=== PATIENT | female | born 1980 | race American Indian/Alaskan Native ===

== ENCOUNTER 2022-01-08 07:59 | Day surgery (SDC) | payer BC ==
[2022-01-08] MEDS ORDERED: LACTATED RINGERS 1,000 ML IV SCH (09:00)
--- NOTE | 2022-01-08 09:02 | Anesthesia Consultation ---
Anesthesia Consult and Med Hx Date of service: 01/08/22 - Airway Anesthetic Teeth Evaluation: Good ROM Head & Neck: Adequate Mental/Hyoid Distance: Adequate Mallampati Class: Class III Intubation Access Assessment: Possibly Difficult - Pre-Operative Health Status ASA Pre-Surgery Classification: ASA3 Proposed Anesthetic Plan: General - Central Nervous System Hx Psychiatric Problems: No - Other Systems Hx Alcohol Use: Yes (Occas) Hx Substance Use: Yes (Marijuana occas) Hx Cancer: No Hx Obesity: Yes (Morbid obesity BMI 42.5)
--- NOTE | 2022-01-08 09:02 | Anesthesia Day of Surgery ---
Anesthesia Day of Surgery - Day of Surgery Patient Examined: Yes Patient H&P Reviewed: Yes Patient is NPO: Yes
[2022-01-08] MEDS ORDERED: ROCURONIUM 50 MG/5 ML INJ IV ONE (09:46)
[2022-01-08] MEDS ORDERED: ONDANSETRON 4 MG/2 ML INJ ONE (09:46)
[2022-01-08] MEDS ORDERED: propofoL 200 MG/20 ML VIAL IV ONE (09:47)
[2022-01-08] MEDS ORDERED: HYDROmorphone 1 MG/1 ML INJ ONE (09:47)
[2022-01-08] MEDS ORDERED: fentaNYL 100 MCG/2 ML INJ ONE (09:48)
[2022-01-08] MEDS ORDERED: LIDOCAINE MPF (2%) 20 MG/1 ML VIAL 5 ML ONE (09:53)
[2022-01-08] MEDS ORDERED: CELECOXIB 200 MG CAP PO NR (10:00)
[2022-01-08] MEDS ORDERED: GABAPENTIN 300 MG CAP PO NR (10:00)
[2022-01-08] MEDS ORDERED: SCOPOLAMINE TRANSDERMAL PATCH 72 HR TD NR (10:00)
[2022-01-08] MEDS ORDERED: FAMOTIDINE 20 MG/2 ML INJ IV NR (10:00)
[2022-01-08] MEDS ORDERED: MIDAZOLAM 2 MG/2 ML INJ IV NR (10:00)
--- NOTE | 2022-01-08 10:00 | Short Stay Summary ---
Short Stay Documentation Date of service: 01/08/22 Narrative H&P: 41-year-old -0-1-1 with undesired fertility. The patient was given other contraceptive options and elected to undergo permanent sterilization - History Principal diagnosis: Unwanted fertility Past Medical History: No medical history Past Surgical History: Social history: single, smoking - Allergies and Medications Current Medications: Allergies sulfamethoxazole [From Bactrim] Allergy (Verified 01/06/22 17:16) Anaphylaxis trimethoprim [From Bactrim] Allergy (Verified 01/06/22 17:16) Anaphylaxis Home Medications Medication Instructions Recorded Confirmed Last Taken Type Phentermine HCl 30 mg PO QDAY 01/08/22 01/08/22 01/02/22 History Topiramate [Topamax] 25 mg PO QDAY 01/08/22 01/08/22 01/02/22 History Active Medications Famotidine (Famotidine 20 Mg/2 Ml Inj) 20 mg IV PREOP NR Stop: 01/08/22 20:00 Gabapentin (Gabapentin 300 Mg Cap) 300 mg PO PREOP NR Stop: 01/08/22 20:00 Lactated Ringer's (Lactated Ringers) 1,000 mls @ 100 mls/hr IV DIRECT REBECA Last Admin: 01/08/22 09:40 Dose: 100 mls/hr Midazolam HCl (Midazolam 2 Mg/2 Ml Inj) 2 mg IV PREOP NR Stop: 01/08/22 23:59 Scopolamine (Scopolamine Transdermal Patch 72 Hr) 1 each TD PREOP NR Stop: 01/08/22 20:00 - Physical exam General appearance: no acute distress Integumentary: no rash HEENT: Atraumatic Lungs: Clear to auscultation Breasts: deferred Heart: Regular rate Gastrointestinal: normal Female Genitourinary: deferred Extremities: no ischemia - Brief post op/procedure progress note Date of procedure: 01/08/22 Pre-op diagnosis: Unwanted fertility Post-op diagnosis: same Procedure: Laparoscopic bilateral tubal ligation with bilateral salpingectomy Anesthesia: JONATHAN Surgeon: CARISA ARCEO Estimated blood loss: minimal Pathology: list (Bilateral fallopian tubes) Specimen disposition: to lab Condition: stable - Hospital course Hospital course: The patient was admitted the day of surgery and underwent a bilateral salpingectomy. Please see operative note for details of surgery. Her postoperative course was uneventful. - Disposition Condition at discharge: Good Disposition: 01 HOME / SELF CARE / HOMELESS Short Stay Discharge Plan Activity: no restrictions Diet: regular Additional Instructions: Follow-up is not required Follow-up as needed Prescriptions: Ibuprofen [Motrin] 800 mg PO Q8HR PRN #30 tablet PRN Reason: Pain , Severe (7-10) HYDROcodone/APAP 5-325 [[place] 5/325] 1 each PO Q6HR PRN #15 tablet PRN Reason: Pain
[2022-01-08] MEDS ORDERED: BUPIVACAINE/PF (0.5%) 5 MG/1 ML 10 ML VIAL INFILTRATI ONE ×2 (10:23→11:14)
[2022-01-08] MEDS ORDERED: SODIUM CHLORIDE 0.9% IRR 1,500 ML BOTTLE IR ONE (11:14)
[2022-01-08] MEDS ORDERED: SUGAMMADEX SODIUM 200 MG/2 ML VIAL IV ONE (11:16)
--- NOTE | 2022-01-08 11:35 | Operative Report ---
Operative Report Operative Report: Date of surgery: January 08, 2022 Preoperative diagnosis: Unwanted fertility Postoperative diagnosis: Same as above Procedure: Laparoscopy; Bilateral salpingectomy Surgeon: Shana Juarez M.D. Anesthesia: General endotracheal anesthesia Estimated blood loss: Minimal Pathology: Bilateral fallopian tubes Findings: Normal uterus tubes and ovaries Indication: 41-year-old -0-1-1 with undesired fertility Procedure: The patient was taken to the operating room and given general endotracheal anesthesia without complication. The patient is prepped and draped in a normal sterile fashion. A bivalve speculum was placed in the patient's vagina and a single-tooth tenaculum was placed on the anterior lip of the cervix .A uterine acorn manipulator was placed, and the bivalve speculum was then removed. Attention was then turned to the patient's abdomen where a 5 mm infraumbilical skin incision was then made. A Veress needle was placed and peritoneal entry was verified water-filled syringe. Insufflation of the peritoneal cavity was performed with CO2 gas. A 5 mm trocar was placed and the laparoscope was then inserted. The patient was then placed in Trendelenburg. A 7 mm suprapubic skin incision was then made. Under direct visualization a 7 mm trocar was then placed. An additional 5 mm left lateral trocar was also placed. General survey of the patient's abdomen revealed normal uterus tubes and ovaries. The left fallopian tube had an isthmic portion that was adherent to the left ovary. The ampullary portion and fimbriated end of the tube were excised. The fallopian tube was then followed out to the fimbriated end. The LigaSure device was used in order to coagulate and transect the mesosalpinx. The fallopian tube was excised from the adnexa. The fallopian tube was removed through the 7 mm trocar. The entire right fallopian tube was able to be excised. The trocars were then removed. The pneumoperitoneum was then released. The 5 mm trocar laparoscope was then removed. The skin incisions were then closed with 4-0 Monocryl. The incisions were injected with quarter percent Marcaine. Dressings were applied to the incision. The vaginal instruments were then removed atraumatically. Then successfully extubated and taken to the recovery room. All sponge laps and needle counts were correct x2.
[2022-01-08 13:03] VITALS: BP 142/90
--- NOTE | 2022-01-08 13:09 | Post Anesthesia Evaluation ---
- Post Anesthesia Evaluation Patient Participated: Yes Airway Patent: Yes Stable Respiratory Function: Yes Nausea/Vomiting: No Temp > 96.8F: Yes Pain Manageable: Yes Adequeate Hydration: Yes Anesthesia Complications: No
== END 2022-01-08 14:15 | disposition home or self-care (01) ==
LOC: OR 07:59
PROVIDERS: ATTEND Obstetrics & Gynecology
DX: Z30.2 Encounter for sterilization (principal); G43.909 Migraine, unspecified, not intractable, without status migrainosus; E66.9 Obesity, unspecified; Z98.891 History of uterine scar from previous surgery; Z79.899 Other long term (current) drug therapy; Z88.8 Allergy status to other drugs, medicaments and biological substances; Z68.41 Body mass index [BMI] 40.0-44.9, adult; Z72.89 Other problems related to lifestyle; Z98.890 Other specified postprocedural states
CPT/HCPCS: 58670; 81025; 88302; J1170; J2250; J2405; J2704; J3010; J3490; J7120

== ENCOUNTER 2022-01-27 09:54 | Emergency (ER) | payer BC ==
--- NOTE | 2022-01-27 10:07 | Emergency Department Report ---
Blank Doc - Documentation Documentation: 41-year-old female that presents with lower abdominal pain. 1- This is a initial triage assessment/medical screening only. Full assessment and work-up will be completed once the patient is in proper hospital gown, ED bed and in a private room setting. This initial assessment/diagnostic orders/clinical plan/ treatment(s) is/are subject to change based on pt's health status, clinical progression and re-assessment by fellow clinical providers in the ED. Further treatment and workup at subsequent clinical providers discretion. Patient/guardians urged not to elope from ED as their condition may be serious if not clinically assessed and managed. 2-labs 3-UA The patient was evaluated in the emergency department for symptoms described in the history of present illness. He/she was evaluated in the context of the global COVID-19 pandemic, which necessitated consideration that the patient might be at risk for infection with the virus that causes COVID-19. Institutional protocols and algorithms that pertain to the evaluation of patients at risk for COVID-19 are in a state of rapid change based on information released by regulatory bodies including the CDC and federal and state organizations. These policies and algorithms were followed during the patient's care in the emergency department. Please note that these policies, procedures and recommendations changed on a rapid basis.
--- NOTE | 2022-01-27 11:04 | Emergency Department Report ---
ED Abdominal Pain HPI - General Chief Complaint: Abdominal Pain Stated Complaint: ABD PAIN Time Seen by Provider: 01/27/22 10:06 Source: patient Mode of arrival: Ambulatory Limitations: No Limitations - History of Present Illness Initial Comments: 41-year-old black female with no past medical history presents to the emergency department for evaluation of right lower quadrant pain. She states that she developed pain yesterday morning and has been getting progressively worse since then. She states that pain is worse with movement. She denies fever, nausea, vomiting, diarrhea, dysuria, and vaginal discharge. She states that she is status post salpingectomy bilaterally on January 08. Complaint: abdominal pain -: Sudden, days(s) (1) Location: RLQ Radiation: none Migration to: no migration Severity scale (0 -10): 7 Quality: aching Consistency: constant Worsens With: movement Associated Symptoms: denies: nausea, vomiting, diarrhea, fever, chills, dysuria, hematemesis, hematochezia, melena, hematuria, anorexia, syncope - Related Data LMP Date: 01/14/22 Home Medications Medication Instructions Recorded Confirmed Last Taken Phentermine HCl 30 mg PO QDAY 01/08/22 01/08/22 01/02/22 Topiramate [Topamax] 25 mg PO QDAY 01/08/22 01/08/22 01/02/22 Previous Rx's Medication Instructions Recorded Last Taken Type HYDROcodone/APAP 5-325 [[place] 1 each PO Q6HR PRN #15 tablet 01/08/22 Unknown Rx 5/325] Ibuprofen [Motrin] 800 mg PO Q8HR PRN #30 tablet 01/08/22 Unknown Rx Allergies Allergy/AdvReac Type Severity Reaction Status Date / Time sulfamethoxazole Allergy Anaphylaxis Verified 01/06/22 17:16 [From Bactrim] trimethoprim [From Bactrim] Allergy Anaphylaxis Verified 01/06/22 17:16 ED Review of Systems ROS: Stated complaint: ABD PAIN Other details as noted in HPI Comment: All other systems reviewed and negative Constitutional: denies: chills, fever Respiratory: denies: shortness of breath Cardiovascular: denies: chest pain, palpitations Gastrointestinal: abdominal pain. denies: nausea, vomiting, diarrhea, hematemesis, melena, hematochezia Genitourinary: denies: urgency, dysuria Musculoskeletal: denies: back pain Skin: denies: rash, lesions Neurological: denies: headache, weakness ED Past Medical Hx - Past Medical History Hx Headaches / Migraines: Yes (Migraines) - Surgical History Additional Surgical History: fallopian tubes removed. - Social History Smoking Status: Never Smoker - Medications Home Medications: Home Medications Medication Instructions Recorded Confirmed Last Taken Type HYDROcodone/APAP 5-325 [[place] 1 each PO Q6HR PRN #15 tablet 01/08/22 Unknown Rx 5/325] Ibuprofen [Motrin] 800 mg PO Q8HR PRN #30 tablet 01/08/22 Unknown Rx Phentermine HCl 30 mg PO QDAY 01/08/22 01/08/22 01/02/22 History Topiramate [Topamax] 25 mg PO QDAY 01/08/22 01/08/22 01/02/22 History ED Physical Exam - General Limitations: No Limitations General appearance: alert, in no apparent distress - Head Head exam: Present: atraumatic, normocephalic - Eye Eye exam: Present: normal appearance. Absent: conjunctival injection - Neck Neck exam: Present: normal inspection, full ROM. Absent: tenderness, lymphadenopathy - Respiratory Respiratory exam: Present: normal lung sounds bilaterally. Absent: respiratory distress, wheezes, rales, rhonchi, stridor, chest wall tenderness - Cardiovascular Cardiovascular Exam: Present: regular rate, normal heart sounds - GI/Abdominal GI/Abdominal exam: Present: soft, tenderness (RLQ), normal bowel sounds. Absent: distended, guarding, rebound, rigid - Extremities Exam Extremities exam: Present: normal inspection, full ROM, normal capillary refill. Absent: pedal edema, joint swelling, calf tenderness - Back Exam Back exam: Present: normal inspection. Absent: CVA tenderness (R), CVA tenderness (L) - Neurological Exam Neurological exam: Present: alert, oriented X3, normal gait - Psychiatric Psychiatric exam: Present: normal affect, normal mood - Skin Skin exam: Present: warm, dry, intact, normal color ED Course Vital Signs 01/27/22 01/27/22 10:08 13:48 Temperature 98.9 F 98.6 F Pulse Rate 72 72 Respiratory 14 16 Rate Blood Pressure 121/93 Blood Pressure 136/90 [Right] O2 Sat by Pulse 100 100 Oximetry ED Medical Decision Making - Lab Data Result diagrams: 01/27/22 10:53 01/27/22 10:53 - Radiology Data Radiology results: report reviewed, image reviewed CT abdomen and pelvis without contrast: FINDINGS: CT ABDOMEN: Lung Bases: Clear. Liver: No significant abnormality. Biliary: No significant abnormality. Spleen: No significant abnormality. Unenlarged. Pancreas: No significant abnormality. Adrenals: No significant abnormality. Kidneys: No significant abnormality. Lymphatics: No lymphadenopathy. Vasculature: No significant abnormality. Bowel/Peritoneum: No significant abnormality. No free air. No free fluid. Normal appendix. CT PELVIS: : No significant abnormality. Osseous Structures: No significant abnormality. Mild degenerative disc disease at L5-S1. Additional Findings: None IMPRESSION: No significant abnormality. No clear explanation for right lower quadrant abdominal pain. - Medical Decision Making 41-year-old black female with no past medical history presents to the emergency department for evaluation of right lower quadrant pain. She states that she developed pain yesterday morning and has been getting progressively worse since then. She states that pain is worse with movement. She denies fever, nausea, vomiting, diarrhea, dysuria, and vaginal discharge. She states that she is status post salpingectomy bilaterally on January 08. Work-up unremarkable including CT scan with no acute abnormalities noted. Patient be discharged home to follow-up with her primary care provider or [facility] for further evaluation and management. She is advised to return to the emerg ency department as needed. She verbalizes understanding of and agreement with plan of care. Laboratory Results - last 24 hr 01/27/22 01/27/22 01/27/22 10:35 10:53 10:53 WBC 4.4 L RBC 4.80 Hgb 12.6 Hct 39.6 MCV 83 MCH 26 L MCHC 32 RDW 14.4 Plt Count 282 Lymph % (Auto) 40.6 H [place] % (Auto) 6.4 Eos % (Auto) 2.0 Baso % (Auto) 1.0 Lymph # (Auto) 1.8 [place] # (Auto) 0.3 Eos # (Auto) 0.1 Baso # (Auto) 0.0 Seg Neutrophils % 50.0 Seg Neutrophils # 2.2 Sodium 136 L Potassium 4.0 Chloride 100.1 Carbon Dioxide 26 Anion Gap 14 BUN 10 Creatinine 0.9 Estimated GFR > 60 BUN/Creatinine Ratio 11 Glucose 102 H Calcium 9.3 Total Bilirubin 0.30 AST 16 ALT 14 Alkaline Phosphatase 60 Total Protein 7.0 Albumin 4.1 Albumin/Globulin Ratio 1.4 Lipase 15 HCG, Qual Urine Color Straw Urine Turbidity Clear Specific [place] (Man) 1.020 Ur Protein (Man) <30 mg dl Ur Ketones (Man) Negative Urine Bilirubin (Man) Negative Urine WBC (Auto) 3.0 Urine RBC (Auto) 1.0 U Epithel Cells (Auto) 9.0 Urine RBC (Manual) Negative Urine Mucus Few 01/27/22 10:53 WBC RBC Hgb Hct MCV MCH MCHC RDW Plt Count Lymph % (Auto) [place] % (Auto) Eos % (Auto) Baso % (Auto) Lymph # (Auto) [place] # (Auto) Eos # (Auto) Baso # (Auto) Seg Neutrophils % Seg Neutrophils # Sodium Potassium Chloride Carbon Dioxide Anion Gap BUN Creatinine Estimated GFR BUN/Creatinine Ratio Glucose Calcium Total Bilirubin AST ALT Alkaline Phosphatase Total Protein Albumin Albumin/Globulin Ratio Lipase HCG, Qual Negative Urine Color Urine Turbidity Specific [place] (Man) Ur Protein (Man) Ur Ketones (Man) Urine Bilirubin (Man) Urine WBC (Auto) Urine RBC (Auto) U Epithel Cells (Auto) Urine RBC (Manual) Urine Mucus Critical care attestation.: If time is entered above; I have spent that time in minutes in the direct care of this critically ill patient, excluding procedure time. ED Disposition Clinical Impression: Abdominal pain Qualifiers: Abdominal location: right lower quadrant Qualified Code(s): R10.31 - Right lower quadrant pain Disposition: 01 HOME / SELF CARE / HOMELESS Is pt being admited?: No Does the pt Need Aspirin: No Condition: Stable Instructions: Abdominal Pain, Adult, [id number], Abdominal Pain (ED) Additional Instructions: Use Tylenol and ibuprofen as needed for pain. Follow-up with your primary care provider or [facility] for further evaluation and management. Return to the emergency department as needed. Referrals: MARYSOL BANSAL MD [Staff Physician] - 3-5 Days Forms: Work/School Release Form(ED) Time of Disposition: 13:01
[2022-01-27 11:09] LABS: Eosinophils # (Auto) 0.1 K/mm3 (0.0-0.4); Hematocrit 39.6 % (30.3-42.9); Hemoglobin 12.6 gm/dl (10.1-14.3); Lymphocytes # (Auto) 1.8 K/mm3 (1.2-5.4); Lymphocytes % (Auto) 40.6 % (13.4-35.0); Mean Corpuscular HGB Conc 32 % (30-34); Mean Corpuscular Volume 83 fl (79-97); Monocytes # (Auto) 0.3 K/mm3 (0.0-0.8); Monocytes % (Auto) 6.4 % (0.0-7.3); Platelet Count 282 K/mm3 (140-440); Red Cell Distribution Width 14.4 % (13.2-15.2)
[2022-01-27 11:14] LABS: Mucus,Urine FEW /HPF
[2022-01-27 11:21] LABS: Color,Urine Straw (Yellow)
[2022-01-27 11:32] LABS: Alanine Aminotransferase 14 units/L (7-56); Albumin 4.1 g/dL (3.9-5); BUN/Creatinine Ratio 11; Blood Urea Nitrogen 10 mg/dL (7-17); Calcium 9.3 mg/dL (8.4-10.2); Hemolysis Index 3
--- NOTE | 2022-01-27 12:50 | Cat Scan Report ---
CT ABDOMEN AND PELVIS WITHOUT CONTRAST HISTORY: rlq pain COMPARISON: None. TECHNIQUE: Axial CT images were obtained through the abdomen and pelvis without IV contrast. Sagittal and coronal reformatted images. All CT scans at this location are performed using CT dose reduction for ALARA by means of automated exposure control. FINDINGS: CT ABDOMEN: Lung Bases: Clear. Liver: No significant abnormality. Biliary: No significant abnormality. Spleen: No significant abnormality. Unenlarged. Pancreas: No significant abnormality. Adrenals: No significant abnormality. Kidneys: No significant abnormality. Lymphatics: No lymphadenopathy. Vasculature: No significant abnormality. Bowel/Peritoneum: No significant abnormality. No free air. No free fluid. Normal appendix. CT PELVIS: : No significant abnormality. Osseous Structures: No significant abnormality. Mild degenerative disc disease at L5-S1. Additional Findings: None IMPRESSION: No significant abnormality. No clear explanation for right lower quadrant abdominal pain. Signer Name: Eamon Cook Jr, MD Signed: 01/27/2022 12:46 PM Workstation Name: [id number]
[2022-01-27 14:02] VITALS: BP 136/90
== END 2022-01-27 14:13 | disposition home or self-care (01) ==
LOC: ED 09:54
DX: R10.9 Unspecified abdominal pain (principal); Z88.2 Allergy status to sulfonamides; Z88.8 Allergy status to other drugs, medicaments and biological substances
CPT/HCPCS: 36415; 74176; 80053; 81001; 83690; 84703; 85025; 99284